=== PATIENT | female | born 1995 | race Hispanic/Latino ===

== ENCOUNTER 2017-02-16 01:19 | Emergency (ER) | payer MEDICAID ==
[2017-02-16 01:30] VITALS: BP 100/63; PULSE 64; RESP 16; TEMP 97.8; O2SAT 100
[2017-02-16] MEDS ORDERED: Sodium Chloride 0.9% 1,000 ML IV STA (01:48)
--- NOTE | 2017-02-16 01:51 | ED PDOC ---
HPI: Psych/Substance Abuse Time Seen by Provider: 02/16/17 01:37 Chief Complaint (Nursing): Alcohol Ingestion Chief Complaint (Provider): alcohol intoxication ED Caveat: Intoxicated History Per: EMS History/Exam Limitations: intoxication Onset/Duration Of Symptoms: Other Current Symptoms Are (Timing): Still Present Modifying Factor(s): Alcohol Severity: Moderate Involuntary Hold By: Emergency Physician Additional Complaint(s): [facility] Patient unable to provide history due to intoxicated state Past Medical History Reviewed: Historical Data, Nursing Documentation, Vital Signs, Unable To Obtain (futrther hx) Vital Signs: Last Vital Signs Temp 97.8 F 02/16/17 01:24 Pulse 64 02/16/17 01:24 Resp 16 02/16/17 01:24 BP 100/63 02/16/17 01:24 Pulse Ox 100 02/16/17 01:24 - Family History Family History: States: No Known Family Hx - Allergies Allergies/Adverse Reactions: Allergies Allergy/AdvReac Type Severity Reaction Status Date / Time No Known Allergies Allergy Verified 02/16/17 01:30 Physical Exam - Reviewed Nursing Documentation Reviewed: Yes Vital Signs Reviewed: Yes - Physical Exam Appears: Positive for: No Acute Distress Head Exam: Positive for: ATRAUMATIC, NORMOCEPHALIC Skin: Positive for: Normal Color, Warm, Dry Eye Exam: Positive for: Normal appearance, EOMI, PERRL ENT: Positive for: Normal ENT Inspection Neck: Positive for: Normal, Painless ROM, Supple Cardiovascular/Chest: Positive for: Regular Rate, Rhythm. Negative for: Edema, Gallop Respiratory: Positive for: Normal Breath Sounds. Negative for: Crackles, Rales , Wheezing Gastrointestinal/Abdominal: Positive for: Normal Exam, Bowel Sounds, Soft. Negative for: Tenderness Back: Positive for: Normal Inspection. Negative for: L CVA Tenderness, R CVA Tenderness Extremity: Positive for: Normal ROM. Negative for: Tenderness, Pedal Edema Neurologic/Psych: Positive for: Other (speech is slurred). Negative for: Alert (somnolent) - ECG O2 Sat by Pulse Oximetry: 100 Medical Decision Making Medical Decision Makin yo intoxicated female Labs and trial of IVF and Zofran ordered At 2AM family (sister) at bedside and will take home Dx Alcohol intoxication Stable Disposition - Clinical Impression Clinical Impression: Alcohol use - Patient ED Disposition Is Patient to be Admitted: No - Disposition Disposition: Routine/Home Disposition Time: 02:00 Condition: STABLE Instructions: Alcohol Intoxication (ED)
== END 2017-02-16 01:40 | disposition home or self-care (01) ==
LOC: H.ER 01:19
DX: F10.10 Alcohol abuse, uncomplicated (principal); R11.10 Vomiting, unspecified